=== PATIENT | male | born 1930 ===

== ENCOUNTER 2016-10-15 11:12 | Inpatient (IN) | payer MEDICARE, OTHER ==
--- NOTE | ~2016-10-15 | DS ---
Discharge Summary [facility] [address] [facility] [place]. [address] NAME: IVAN MORROW : [birth year] STATUS : DIS IN PAT#: [id number] AGE: 86 ADM/REG DATE : 10/15/16 MR#: [id number] REPORT SERV DATE: 10/25/16 DICTATED BY: YUNIEL BOURNE III DATE: 10/22/16 REPORT STATUS : Draft TRANSCRIBED BY: MATTI DATE: 10/22/16 Data Collection from hospitalization DISCHARGE DIAGNOSES: 1. Urinary retention. 2. Hypertension. 3. Arthritis. 4. Diverticulitis. 5. Atrial fibrillation. 6. Anemia. 7. Coronary artery disease. 8. Benign prostatic hypertrophy. CONSULTATIONS: None. PROCEDURES: Cystoscopy and TURP, 10/15/2016. PATHOLOGY: Prostate transurethral resection-nodular, glandular, and stromal hyperplasia. Negative for carcinoma. DISCHARGE MEDICATIONS: Vitamin C 2 tablets twice a day, aspirin 81 mg daily as instructed, Lipitor 20 mg at bedtime, Coreg 3.125 mg twice a day, Colace 100 mg twice a day, Ferrex 150 mg daily, Orazinc 220 mg daily, Tylenol 650 mg every four hours as needed, Tessalon 100 mg three times a day as needed, Coalmont 10/325 one tablet every four hours as needed, daily vitamin 1 tablet every morning, vitamin B12 500 mg every morning, M-End liquid 15 mL every six hours as needed, Fidelina-Lanta 1 mL every four hours as needed. CONDITION ON DISCHARGE: Stable. DISPOSITION: The patient was discharged to [facility] on a soft diet with activities as instructed. HOSPITAL COURSE: This is an 86-year-old man who has urinary retention. He had been in a usp and has a number of medical problems. He has had a catheter in place. He had been in a usp for several months and had failed a number of voiding trials despite Flomax and finasteride. The patient has benign prostatic hypertrophy and urinary retention. He was interested and undergoing surgical intervention. He was admitted to the hospital at this time for further evaluation and treatment. Upon admission, he was taken to the operating room where he underwent the above-mentioned procedure. He tolerated this well. There were no complications. On postop day #1, he had no new complaints. His abdomen was benign. Urine was casillas colored with slow moderate continuous bladder irrigation. The Villalba catheter and continuous bladder irrigation continued. The following day, his urine was clear with slow continuous bladder irrigation. We were going to wean and then stop the continuous bladder irrigation. Discharge planning was performed. On 10/18/2016, he was afebrile. His vital signs were stable. His abdomen was soft with positive bowel sounds. His abdomen was nondistended. He underwent hand irrigation and his urine was clear. There were no clots. Discharge instructions were Discharge Summary [address] [place]. [address] NAME: IVAN MORROW : [birth year] STATUS : DIS IN PAT#: [id number] AGE: 86 ADM/REG DATE : 10/15/16 MR#: [id number] REPORT SERV DATE: 10/25/16 DICTATED BY: YUNIEL BOURNE III DATE: 10/22/16 REPORT STATUS : Draft TRANSCRIBED BY: MATTI DATE: 10/22/16 given. Due to his improved and stable condition, he was discharged to [facility] with the above-stated instructions. Information collected by: Chiara Newman I submit the above information as my discharge summary. TG/MATTI Yuniel Bourne III, M.D. / [id number] CC: Yuniel Bourne III, M.D. [facility]
--- NOTE | ~2016-10-15 | OP ---
Record Of Operation [facility] [address] [place]. [address] NAME: IVAN MORROW : [birth year] STATUS : ADM IN PAT#: [id number] AGE: 86 ADM/REG DATE : 10/15/16 MR#: [id number] REPORT SERV DATE: 10/15/16 DICTATED BY: YUNIEL SNOWDEN III DATE: 10/15/16 REPORT STATUS : Draft TRANSCRIBED BY: MODL DATE: 10/15/16 DATE OF PROCEDURE: 10/15/2016 PROCEDURE: Cystoscopy, TURP. PREOPERATIVE DIAGNOSIS: Urinary retention. POSTOPERATIVE DIAGNOSIS: Urinary retention. ANESTHESIA: General. SURGEON: Yuniel Snowden M.D. DESCRIPTION OF PROCEDURE: Following induction of adequate general anesthesia, the patient was placed in the dorsal lithotomy position, prepped and draped in a sterile fashion. The urethra was entered and noted to be normal. The prostate was entered. The lateral lobes met in the midline. There was a small median lobe. There was a good bit of catheter reaction. No tumors or stones were noted. A 26-Monegasque resectoscope sheath was placed in the bladder neck was resected down to bladder neck fibers. The floor of the prostate was then resected for several centimeters and resection was begun on the right lateral lobe beginning at the 6 o'clock position and carried up to the 10 o'clock position. At this point, the anterior tissue was bulging down having been released, so it was resected from bladder neck to the verumontanum. There was very little bleeding. The left lateral lobe was then resected from the 12 o'clock to the 6 o'clock position. Some additional tissue was taken at the apex. On the right side at approximately 9 o'clock, a small shaving of tissue and several small masses of adenoma were resected. A small venous sinus was encountered, which continued to bleed despite a brief attempt at coagulation. All chips and clots had been evacuated from the bladder and inspection of the bladder was done prior to Villalba catheter placement. I used a loop to cauterize circumferentially around the venous plexus and slowed it to a tiny trickle. A 22 three-way catheter was placed. Approximately 45 mL was placed in the balloon, held on traction for five minutes, and the drainage was clear. He tolerated the procedure well. In recovery room, the irrigation was held and medium drip was clear. OB/MODL Yuniel Snowden III, M.D. / [id number] CC: Yuniel Snowden III, M.D.
[~2016-10-15 11:12] MED LIST: ASAB PO; COREG3 PO; DAILY VIT PO; DSS PO; ELIQUIS 5 MG TAB5 MG PO; FERREX 150150 MG PO; FLOMAX4 PO; GERI-LANTA PO; KDUR20 PO; L40 PO; LIPITOR20 PO; M-END DMX LIQU473 ML PO; MIRALAX POWDER1 PKT PO; NEUR100 PO; NORCO1 TAB PO; PRILO PO; PROSCAR5 PO; T PO; TESS PO; VIT D PO; VITAMIN B-12 PO; VITC500 PO; ZINC220C PO; [UNRECOGNIZED DRUG - OTHER]
[2016-10-16 06:22] LABS: BASOPHILS 0.2 %; BASOPHILS ABSOLUTE 0.01 10/3/uL (0.0-0.16); EOSINOPHILS 0 %; HEMATOCRIT 34.9 % (40.0-51.0); HEMOGLOBIN 11.4 g/dL (13.6-17.8); IMMATURE GRANULOCYTES 0.4 %; IMMATURE GRANULOCYTES ABSOLUTE 0.02 10/3/uL (0.0-0.11); LYMPHOCYTES 10.3 %; LYMPHOCYTES ABSOLUTE 0.55 10/3/uL (0.67-4.30); MEAN CORPUS HGB CONC 32.7 g/dL (32.0-36.0); MEAN CORPUSCULAR HEMOGLOB 28.1 pg (26.0-34.0); MEAN PLATELET VOLUME 9.8 fL (9.2-13.0); MONOCYTES 8.4 %; MONOCYTES ABSOLUTE 0.45 10/3/uL (0.21-1.20); NEUTROPHILS 80.7 %; NEUTROPHILS ABSOLUTE 4.32 10/3/uL (2.02-8.40); PLATELET COUNT 134 10/3/uL (150-400); RBC DISTRIBUTION WIDTH 17.3 % (12.0-16.0); RED CELL COUNT 4.06 10/6/uL (4.7-6.1); WHITE BLOOD CELLS 5.4 10/3/uL (4.5-10.5)
[2016-10-16 06:23] LABS: MANUAL DIFF NO %
[2016-10-16 06:31] LABS: BUN (BLOOD UREA NITROGEN) 23 MG/DL (6-23); CALCIUM, SERUM 9.4 MG/DL (8.5-10.4); CHLORIDE, SERUM 100 MMOL/L (96-112); CO2 (CARBON DIOXIDE) 27 MMOL/L (24-34); CREATININE 1.22 MG/DL (0.70-1.30); GFR AFRICAN AMERICAN 61 ML/MIN (>=60); GFR NON AFRICAN AMERICAN 53 ML/MIN (>=60); GLUCOSE, SERUM 115 MG/DL (60-99); POTASSIUM, SERUM 4.8 MMOL/L (3.5-5.3); SODIUM, SERUM 136 MMOL/L (135-148)
[2016-10-17 05:24] LABS: HEMATOCRIT 32.5 % (40.0-51.0); HEMOGLOBIN 10.7 g/dL (13.6-17.8)
== END 2016-10-18 13:35 | DRG 713 ==
LOC: SDC 11:12 → SDC/OF 17:00 → 4SO 17:01
PROVIDERS: Urology
PROC: 0VB08ZZ Excision of Prostate, Via Natural or Artificial Opening Endoscopic (ICD-10-PCS; principal; 2016-10-15 13:15)
DX: N40.1 Benign prostatic hyperplasia with lower urinary tract symptoms (principal); N13.8 Other obstructive and reflux uropathy; I48.2 Chronic atrial fibrillation; R33.8 Other retention of urine; Z95.0 Presence of cardiac pacemaker; Z79.01 Long term (current) use of anticoagulants; M19.90 Unspecified osteoarthritis, unspecified site; I25.10 Atherosclerotic heart disease of native coronary artery without angina pectoris; I10 Essential (primary) hypertension; Z96.653 Presence of artificial knee joint, bilateral; Z79.82 Long term (current) use of aspirin; Z79.891 Long term (current) use of opiate analgesic
CPT/HCPCS: 80048; 82962; 85014; 85018; 85025; 88305; 88341; 88342; A9270-GY; J0290; J1580; J2370; J2405; J2710; J3010

== ENCOUNTER 2016-11-04 10:31 | Inpatient (IN) | payer MEDICARE, OTHER ==
--- NOTE | ~2016-11-04 | DS ---
Discharge Summary [facility] [address] [place]. [address] NAME: IVAN MORROW : [birth year] STATUS : DIS IN PAT#: [id number] AGE: 86 ADM/REG DATE : 11/06/16 MR#: [id number] REPORT SERV DATE: 11/09/16 DICTATED BY: YUNIEL SNOWDEN III DATE: 11/08/16 REPORT STATUS : Draft TRANSCRIBED BY: MODL DATE: 11/08/16 ADMISSION DATE: 11/06/2016 DISCHARGE DATE: 11/08/2016 DATE OF ANTICIPATED DISCHARGE: 11/08/2016 REASON FOR ADMISSION: Gross hematuria and clot retention. HISTORY OF PRESENT ILLNESS: The patient is an 86-year-old white male who approximately 3 weeks ago had a TURP. He went home. His urine was clear. He was voiding well, but developed gross hematuria on 11/03/2016. He was unable to void on 11/04/2016 and sent to the emergency room. He was found to be in clot retention and was unable to evacuate his bladder. He was taken to surgery for clot evacuation. PAST MEDICAL HISTORY: Includes arthritis, atrial fibrillation, diverticulitis, coronary artery disease, hypertension, GI bleeding. He has a pacemaker and a cardiac stent. He has had a herniorrhaphy. He had an aortic valve replacement in 2016 and bilateral knee replacements. ALLERGIES: HE HAS NO ALLERGIES. HOSPITAL COURSE: The patient was taken to the operating room. A large amount of clot was evacuated. His hemoglobin I think was was artificially elevated due to the fact that he had not had anything to eat for almost 24 hours. His initial hemoglobin was 11.2. Post evacuation, during which we lost very little blood but he was hydrated, was 9.7, drifted down to 7.7. He was ultimately given a unit of blood. Hemoglobin was 8.5 on 11/08/2016. His urine has been clear since the clot evacuation. His platelets are a little low at 91,000. He is scheduled to go back to rehab today, and we will leave his catheter in another day or 2. He is to avoid any vigorous activity and we will probably remove his catheter in 48 hours. Once he has voided for several days, he can start back on his Eliquis. OB/MODL Yuniel Snowden III, M.D. / [id number] CC: Jaye Chun III, M.D.
--- NOTE | ~2016-11-04 | HP ---
History And Physical [place] [id number] [facility] [place]. [address] NAME: IVAN MORROW : [birth year] STATUS : ADM Wally PAT#: [id number] AGE: 86 ADM/REG DATE : 11/04/16 MR#: [id number] REPORT SERV DATE: 11/04/16 DICTATED BY: YUNIEL SNOWDEN III DATE: 11/04/16 REPORT STATUS : Draft TRANSCRIBED BY: MODL DATE: 11/04/16 DATE OF ADMISSION: 11/04/2016 REASON FOR ADMISSION: Gross hematuria and clot retention. HISTORY OF PRESENT ILLNESS: The patient is an 86-year-old, white male, who approximately three weeks ago had a cystoscopy TURP. He had small amount of bleeding at the end of the procedure, but his urine cleared, and he was discharged home with catheter being removed last week. He developed gross hematuria yesterday having had some pink urine on Tuesday. He came in with passing clots in the emergency room. He was stable hemodynamically. Hemoglobin was 11.8, was 11.4, white count was 11.8. A catheter was placed and irrigation started, however, the urine continued to be bloody. When I saw him in CDU, the irrigation bag was empty, and I evacuated a large amount of old dark clot. I could not get him cleared, the irrigation continuing to get clots. He is n.p.o., and I have simply scheduled him for cystoscopy, evacuation, and fulguration. PAST MEDICAL HISTORY: Includes arthritis, diverticulitis, atrial fibrillation, coronary artery disease, hypertension, and GI bleeding. He has a pacemaker and a stent. He has had herniorrhaphy, carpal tunnel surgery repair of his right elbow, aortic valve replacement in May 2016, bilateral knee replacements. ALLERGIES: HE HAS NO KNOWN ALLERGIES. MEDICATIONS: Can be found on the chart. SOCIAL HISTORY: He does not smoke or drink and lives in assisted living. REVIEW OF SYSTEMS: Review of systems revealed no recent chest pain. He is active but does have COPD and has dyspnea on exertion. He has had some lower abdominal pain since bleeding with clots. PHYSICAL EXAMINATION: VITAL SIGNS: 143/67, temperature is 99.3, pulse was 70. GENERAL: He is alert and oriented. Mood and affect were normal. HEART: He had an irregular rhythm that I suspect maybe an atrial fibrillation. LUNGS: Clear with some rhonchi. ABDOMEN: Abdomen was soft. Bowel sounds are present and active. He had umbilical hernia bulging. The suprapubic area was full. I could not elicit tenderness but I could not freely irrigate. EXTREMITIES: There was some mild pedal edema. DATA: His laboratory did reveal sodium 134, creatinine of 1.68 which is up from his normal of 1.2. BUN was 30. IMPRESSION: Clot retention. I think he will need a cystoscopy, clot evacuation, and fulguration. I have explained this to the patient and the son, and they both understand and History And Physical [address] [place]. [address] NAME: IVAN MORROW : [birth year] STATUS : ADM Wally PAT#: [id number] AGE: 86 ADM/REG DATE : 11/04/16 MR#: [id number] REPORT SERV DATE: 11/04/16 DICTATED BY: YUNIEL SNOWDEN III DATE: 11/04/16 REPORT STATUS : Draft TRANSCRIBED BY: MODL DATE: 11/04/16 are in agreement. Risks including continued bleeding, infection. I will give him ampicillin and gentamicin since he has had an aortic valve replacement. OB/MODL Yuniel Snowden III, M.D. / [id number] CC: Yuniel Snowden III, M.D.
--- NOTE | ~2016-11-04 | OP ---
Record Of Operation [facility] [address] [place] [address] NAME: IVAN MORROW : [birth year] STATUS : ADM Wally PAT#: [id number] AGE: 86 ADM/REG DATE : 11/04/16 MR#: [id number] REPORT SERV DATE: 11/04/16 DICTATED BY: YUNIEL SNOWDEN III DATE: 11/04/16 REPORT STATUS : Draft TRANSCRIBED BY: MODL DATE: 11/04/16 DATE OF PROCEDURE: 11/04/2016 PROCEDURE: Cystoscopy, clot evacuation, and fulguration of the prostate. PREOPERATIVE DIAGNOSIS: Clot retention. POSTOPERATIVE DIAGNOSIS: Clot retention. ANESTHESIA: General. SURGEON: Yuniel Snowden M.D. DESCRIPTION OF PROCEDURE: Following induction of adequate general anesthesia, the patient was placed in the dorsal lithotomy position, prepped and draped in the sterile fashion. The urethra was examined and noted to be normal. The prostate was entered, it was widely patent, there was a clot adherent to the right side of the prostatic wall filling the bladder with a sticky coherent clot. I irrigated quite a large amount of clot, there did not appear to be much active bleeding, I had to break up the clot with a loop which was somewhat tedious and time consuming. Finally, the loop fragmented the clot. All clot was removed, the orifices were intact, there were no bladder perforations. I did shave some clot from the bladder and caused also a small amount of bleeding which was fulgurated, all clots and chips were evacuated. Final inspection showed the prostate to be widely patent with no irrigation running, it was clear. A 24 three-way was inserted. The patient tolerated the procedure well. OB/MODL Yuniel Snowden III, M.D. / [id number] CC: Yuniel Snowden III, M.D.
[2016-11-04 10:39] LABS: BASOPHILS 0.1 %; BASOPHILS ABSOLUTE 0.01 10/3/uL (0.0-0.16); EOSINOPHILS 0.2 %; EOSINOPHILS ABSOLUTE 0.02 10/3/uL (0.0-0.53); HEMATOCRIT 33.5 % (40.0-51.0); HEMOGLOBIN 11.2 g/dL (13.6-17.8); IMMATURE GRANULOCYTES 0.3 %; IMMATURE GRANULOCYTES ABSOLUTE 0.03 10/3/uL (0.0-0.11); LYMPHOCYTES 8.4 %; LYMPHOCYTES ABSOLUTE 0.99 10/3/uL (0.67-4.30); MEAN CORPUS HGB CONC 33.4 g/dL (32.0-36.0); MEAN CORPUSCULAR HEMOGLOB 28.5 pg (26.0-34.0); MEAN CORPUSCULAR VOLUME 85.2 fL (80-100); MEAN PLATELET VOLUME 9.4 fL (9.2-13.0); MONOCYTES 6.7 %; MONOCYTES ABSOLUTE 0.79 10/3/uL (0.21-1.20); NEUTROPHILS 84.3 %; NEUTROPHILS ABSOLUTE 9.91 10/3/uL (2.02-8.40); PLATELET COUNT 158 10/3/uL (150-400); RED CELL COUNT 3.93 10/6/uL (4.7-6.1)
[2016-11-04 10:41] LABS: ER CBC TAT 0 Hrs 08 Mins; MANUAL DIFF NO %; WHITE BLOOD CELLS 11.8 10/3/uL (4.5-10.5)
[2016-11-04 10:41] LABS: WBC (NOT ORDERED) (RFLEX) 0 (0-5)
[2016-11-04 10:47] LABS: INTERNATIONAL NORMAL RATI 1.3 UNITS (-); PARTIAL THROMBO TIME 38.8 SEC (22.5-37.2); PROTIME (NOT ORD) 16.1 SEC (12.0-14.5)
[2016-11-04 10:53] LABS: ASCORBIC ACID (UR NOT ORDER) NEG (NEG); BILIRUBIN, URINE NEGATIVE (NEG); ER URINALYSIS TAT 0 Hrs 13 Mins; KETONE, URINE 20 MG/DL (NEG); LEUKOCYTE ESTERASE(NOT OR NEG (NEG); NITRITE (URINE) NEG (NEG)
[2016-11-04 10:59] LABS: A/G RATIO 0.8 (0.7-1.9); ALBUMIN 3.5 G/DL (3.5-5.0); ALKALINE PHOSPHATASE 205 U/L (45-117); CALCIUM, SERUM 9.3 MG/DL (8.5-10.4); CHLORIDE, SERUM 100 MMOL/L (96-112); CO2 (CARBON DIOXIDE) 24 MMOL/L (24-34); CREATININE 1.68 MG/DL (0.70-1.30); GFR AFRICAN AMERICAN 41 ML/MIN (>=60); GFR NON AFRICAN AMERICAN 36 ML/MIN (>=60); GLOBULIN 4.5 G/DL (2.5-4.1); GLUCOSE, SERUM 127 MG/DL (60-99); SGOT(AST) 19 U/L (5-40); SGPT(ALT) 26 U/L (5-65); SODIUM, SERUM 134 MMOL/L (135-148); TOTAL BILIRUBIN 0.9 MG/DL (0-1.2)
[2016-11-04 11:00] LABS: BUN (BLOOD UREA NITROGEN) 30 MG/DL (6-23)
[2016-11-04] MEDS ORDERED: VITC500 PO (13:36)
[2016-11-04] MEDS ORDERED: ASAB PO (13:36)
[2016-11-04] MEDS ORDERED: D.O.S.100 MG PO (13:37)
[2016-11-04] MEDS ORDERED: COREG3 PO (13:37)
[2016-11-04] MEDS ORDERED: FERREX 150150 MG PO (13:37)
[2016-11-04] MEDS ORDERED: LIPITOR20 PO (13:37)
[2016-11-04] MEDS ORDERED: ZINC220C PO (13:38)
[2016-11-04] MEDS ORDERED: NORCO1 TAB PO (13:38)
[2016-11-04] MEDS ORDERED: *UNABLE3 (14:28)
[2016-11-04] MEDS ORDERED: ELIQUIS 5 MG TAB5 MG PO (14:35)
[2016-11-04] MEDS ORDERED: CENTRUM PO (15:20)
[2016-11-04] MEDS ORDERED: B12250T PO (15:22)
[2016-11-04 19:11] LABS: HEMOGLOBIN 9.7 g/dL (13.6-17.8)
[2016-11-04 19:14] LABS: HEMATOCRIT 30.1 % (40.0-51.0)
[2016-11-05 06:38] LABS: HEMOGLOBIN 8.6 g/dL (13.6-17.8); MEAN CORPUS HGB CONC 34.1 g/dL (32.0-36.0); MEAN CORPUSCULAR HEMOGLOB 29.3 pg (26.0-34.0); MEAN CORPUSCULAR VOLUME 85.7 fL (80-100); MEAN PLATELET VOLUME 9.6 fL (9.2-13.0); RBC DISTRIBUTION WIDTH 18.2 % (12.0-16.0); WHITE BLOOD CELLS 15.4 10/3/uL (4.5-10.5)
[2016-11-05 06:39] LABS: HEMATOCRIT 25.2 % (40.0-51.0); MANUAL DIFF YES %; PLATELET COUNT 91 10/3/uL (150-400); RED CELL COUNT 2.94 10/6/uL (4.7-6.1)
[2016-11-05 06:49] LABS: CHLORIDE, SERUM 102 MMOL/L (96-112); CO2 (CARBON DIOXIDE) 25 MMOL/L (24-34); CREATININE 2.04 MG/DL (0.70-1.30); GFR AFRICAN AMERICAN 33 ML/MIN (>=60); GFR NON AFRICAN AMERICAN 28 ML/MIN (>=60); GLUCOSE, SERUM 137 MG/DL (60-99); POTASSIUM, SERUM 5.2 MMOL/L (3.5-5.3); SODIUM, SERUM 133 MMOL/L (135-148)
[2016-11-05 06:51] LABS: BUN (BLOOD UREA NITROGEN) 36 MG/DL (6-23)
[2016-11-05 07:03] LABS: ACANTHOCYTES OCC (0-2/OIF); ANISOCYTOSIS 1+ (5-10/OIF) (0-5/OIF); BAND NEUTROPHILS 9 %; LYMPHOCYTES 4 %; LYMPHOCYTES ABSOLUTE (CALC) 0.62 10/3/uL (0.67-4.30); MONOCYTES 2 %; MONOCYTES ABSOLUTE (CALC) 0.31 10/3/uL (0.21-1.20); NEUTROPHILS ABSOLUTE (CALC) 14.48 10/3/uL (2.02-8.40); PLATELET ESTIMATE DEC (ADEQUATE); SEGMENTED NEUTROPHIL (0) 85 %; TOTAL NUCLEATED CELLS 100
[2016-11-05 10:45] LABS: ASCORBIC ACID (UR NOT ORDER) NEG (NEG); BILIRUBIN, URINE NEGATIVE (NEG); KETONE, URINE NEGATIVE (NEG); LEUKOCYTE ESTERASE(NOT OR LARGE (NEG)
[2016-11-05 10:46] LABS: WBC (NOT ORDERED) (RFLEX) > 182 (0-5)
[2016-11-06 04:48] LABS: BASOPHILS 0.1 %; BASOPHILS ABSOLUTE 0.01 10/3/uL (0.0-0.16); EOSINOPHILS 0.1 %; EOSINOPHILS ABSOLUTE 0.01 10/3/uL (0.0-0.53); HEMOGLOBIN 7.6 g/dL (13.6-17.8); IMMATURE GRANULOCYTES 0.5 %; IMMATURE GRANULOCYTES ABSOLUTE 0.05 10/3/uL (0.0-0.11); LYMPHOCYTES ABSOLUTE 0.57 10/3/uL (0.67-4.30); MEAN CORPUS HGB CONC 33.6 g/dL (32.0-36.0); MEAN CORPUSCULAR HEMOGLOB 28.8 pg (26.0-34.0); MEAN CORPUSCULAR VOLUME 85.6 fL (80-100); MEAN PLATELET VOLUME 9.5 fL (9.2-13.0); MONOCYTES 11.8 %; MONOCYTES ABSOLUTE 1.12 10/3/uL (0.21-1.20); NEUTROPHILS 81.5 %; NEUTROPHILS ABSOLUTE 7.77 10/3/uL (2.02-8.40); PLATELET COUNT 74 10/3/uL (150-400); RBC DISTRIBUTION WIDTH 18.4 % (12.0-16.0); RED CELL COUNT 2.64 10/6/uL (4.7-6.1); WHITE BLOOD CELLS 9.5 10/3/uL (4.5-10.5)
[2016-11-06 04:49] LABS: HEMATOCRIT 22.6 % (40.0-51.0); MANUAL DIFF NO %
[2016-11-06 05:01] LABS: BUN (BLOOD UREA NITROGEN) 39 MG/DL (6-23); CALCIUM, SERUM 8.2 MG/DL (8.5-10.4); CHLORIDE, SERUM 99 MMOL/L (96-112); CO2 (CARBON DIOXIDE) 24 MMOL/L (24-34); CREATININE 1.96 MG/DL (0.70-1.30); GFR AFRICAN AMERICAN 34 ML/MIN (>=60); GFR NON AFRICAN AMERICAN 30 ML/MIN (>=60); GLUCOSE, SERUM 121 MG/DL (60-99); POTASSIUM, SERUM 4.6 MMOL/L (3.5-5.3); SODIUM, SERUM 130 MMOL/L (135-148)
[2016-11-06 05:13] LABS: PLATELET ESTIMATE DEC (ADEQUATE)
[2016-11-06 05:14] LABS: ANISOCYTOSIS 1+ (5-10/OIF) (0-5/OIF)
[2016-11-06 05:16] LABS: ACANTHOCYTES OCC (0-2/OIF)
[2016-11-07 04:59] LABS: HEMATOCRIT 22.4 % (40.0-51.0); HEMOGLOBIN 7.7 g/dL (13.6-17.8)
[2016-11-08 04:54] LABS: HEMATOCRIT 24.6 % (40.0-51.0); HEMOGLOBIN 8.5 g/dL (13.6-17.8)
== END 2016-11-08 15:53 | DRG 909 ==
LOC: ER 10:31 → CDU1 13:30 → CDU2 13:52 → SDC/OF 17:05 → PACU 18:49 → 4SO 19:54
PROVIDERS: Emergency Medicine; Urology
PROC: 0T9B8ZZ Drainage of Bladder, Via Natural or Artificial Opening Endoscopic (ICD-10-PCS; 2016-11-04)
PROC: 0VC08ZZ Extirpation of Matter from Prostate, Via Natural or Artificial Opening Endoscopic (ICD-10-PCS; principal; 2016-11-04 16:45)
PROC: 0W3R8ZZ Control Bleeding in Genitourinary Tract, Via Natural or Artificial Opening Endoscopic (ICD-10-PCS; 2016-11-04 16:45)
PROC: 30233N1 Transfusion of Nonautologous Red Blood Cells into Peripheral Vein, Percutaneous Approach (ICD-10-PCS; 2016-11-07)
DX: N99.820 Postprocedural hemorrhage of a genitourinary system organ or structure following a genitourinary system procedure (principal); I48.91 Unspecified atrial fibrillation; J44.9 Chronic obstructive pulmonary disease, unspecified; N40.1 Benign prostatic hyperplasia with lower urinary tract symptoms; Y83.8 Other surgical procedures as the cause of abnormal reaction of the patient, or of later complication, without mention of misadventure at the time of the procedure; R33.8 Other retention of urine; I25.10 Atherosclerotic heart disease of native coronary artery without angina pectoris; K21.9 Gastro-esophageal reflux disease without esophagitis; M19.90 Unspecified osteoarthritis, unspecified site; I10 Essential (primary) hypertension; Z79.01 Long term (current) use of anticoagulants; Z79.82 Long term (current) use of aspirin; Z79.891 Long term (current) use of opiate analgesic; Z79.899 Other long term (current) drug therapy; I25.2 Old myocardial infarction; Z95.0 Presence of cardiac pacemaker; Z98.61 Coronary angioplasty status; Z95.2 Presence of prosthetic heart valve; Z96.653 Presence of artificial knee joint, bilateral
CPT/HCPCS: 36415; 80048; 80053; 81001; 85014; 85018; 85025; 85610; 85730; 86850; 86900; 86901; 86920; 87086; 93005; 99285; A9270-GY; J0290; J0330; J1580; J1956; J2370; J3010; P9016